=== PATIENT | male | born 1935 | race Caucasian/White ===

== ENCOUNTER 2020-09-09 17:38 | Inpatient (IN) | payer MEDICARE, BC ==
[~2020-09-09] VITALS: Ht 188 cm; Wt 113.4 kg
[~2020-09-09 17:38] MED LIST: ADOXA100 MG PO; ASCORBIC ACID500 MG PO; BUMINATE50 ML IV; COZAAR50 MG PO; DILTIAZEM 24HR240 M4 PO; FLOMAX0.4 MG PO; FLORAJEN3 CAPS460 MG PO; FLUTICASONE PRO16 GM NASAL; GAVILAX510 GM PO; HYDROCODON-ACE1 EAC7 PO; JANTOVEN1 MG PO; K-TAB10 MEQ PO; KLOR-CON 1010 MEQ PO; LASIX40 MG PO; LEVOXYL125 MCG PO; REMICADE INJ100 MG; TOPROL XL25 MG PO; VITAMIN D3 5,01 EACH PO; ZYLOPRIM300 MG PO
[2020-09-09 18:34] VITALS: BP 128/60; BMI 32.1
--- NOTE | 2020-09-09 18:49 | NUR ---
ADMIT TO REHAB FROM ACUTE FLOOR AT [facility] [place]. MAX ASST TO MOVE TO BED X3 STAFF. HE SAID HE WAS UNABLE TO HELP MOVE OR ROLL. HE CAME TO FLOOR RECIEVING A UNIT OF BLOOD VIA RT JUGULAR IV. F/C NOTED. ORNELAS CARE AND ANTHONY CARE DONE WHILE PT IN BED. URINE IS CLOUDY. UA COLLECTED. KEISHA DRAIN NOTED TO ABD. SEROUS FLUID NOTED TO KEISHA DRAIN. LOW ABD INCISION NOTED WITH RUDOLPH AND BRUISING AROUND RUDOLPH. HIS STOMACH PROTRUDES OUT BY RUDOLPH INSTEAD OF STOMACH FLAT. SPENCER HOSE REMOVED. TOES ARE ROUND AND EDEMATOUS. HE HAS EDEMA TO SCROTUM. PENIS IS INVERTED. SKIN BREAKDOWN NOTED TO BUTTOCKS. 1.5 X 3.0 CM PRESSURE ULCER STAGE 2 NOTED. HE IS ON 4LNC HIGH LARISA OXYGEN. STATES HE WEARS 2LNC AT HOME. HE IS ALERT AND ORIENTED X4. WEARS GLASSES. HAD LARGE BM TODAY. CAME TO VISIT.
[2020-09-09 19:25] LABS: BILIRUBIN NEGATIVE (NEGATIVE); KETONE NEGATIVE (NEGATIVE); NITRITE NEGATIVE (NEGATIVE); UROBILINOGEN NORMAL mg/dL (< 2)
[2020-09-09 19:26] LABS: BACTERIA FEW HPF (NONE SEEN)
--- NOTE | 2020-09-09 20:00 | NUR ---
PATIENT ASSESSMENT & VITAL SIGNS DONE. NO C/O PAIN OR DISTRESS. IN ROOM. PATIENT GAVE PERMISSION TOO SIGN PAPERS. PAPERS SIGNED. BED LOW. CALL LIGHT & BEDSIDE TABLE WITHIN REACH. WILL CONTINUE TO MONITOR.
[2020-09-09 20:03] VITALS: BP 128/68
--- NOTE | 2020-09-10 01:00 | NUR ---
PATIENT USED CALL LIGHT FOR ASSIST. PATIENT LIGHT TURNED ON. KEISHA DRAIN EMPTIED 85 CC. BED LOW. ALARM ON. CALL LIGHT WITHIN REACH. WILL CONTINUE TO MONITOR.
--- NOTE | 2020-09-10 01:49 | NUR ---
I have reviewed this patient and I concur with the Shift Assessment completed by the Licensed Practical Nurse today this shift.
[2020-09-10 07:01] LABS: INR 1.39 (0.85-1.17); PROTIME 15.8 SECONDS (11.6-15.0)
[2020-09-10 07:10] VITALS: Ht 188 cm; Wt 113.4 kg
[2020-09-10 08:00] VITALS: BP 116/60
--- NOTE | 2020-09-10 09:38 | NUR ---
HE IS ALERT, TOOK HIS MEDICATIONS WITHOUT ANY PROBLEMS. REPOSITIONED, THE CALL LIGHT IS WITHIN REACH AND THE BED ALARM IS ON.
[2020-09-10 15:39] LABS: BASOPHILS 0.2 % (0-2); EOSINOPHILS 2.8 % (0-7); HEMATOCRIT 26.3 % (42.0-54.0); HEMOGLOBIN 8.3 g/dL (13.5-17.5); IMMATURE GRANULOCYTES 1.1 % (0-5); LYMPHOCYTE ABS# 0.76 10x3/uL (1.32-3.57); LYMPHOCYTES 9.2 % (15-50); MCH 32.7 pg (26.0-34.0); MCHC 31.6 g/dL (31.0-37.0); MCV 103.5 fL (80.0-100.0); MEAN PLATELET VOLUME 9.8 fL (7.4-10.4); MONOCYTES 10.3 % (2-11); NEUTROPHILS 76.4 % (40-80); PLATELET COUNT 234 10x3/uL (130-400); RBC 2.54 10x6/uL (4.20-6.10); WBC 8.3 10x3/uL (4.8-10.8)
[2020-09-10 15:46] LABS: CALC OSMOLALITY 267 mosm/kg (275-300); CALCIUM 8.4 mg/dL (8.5-10.1); CARBON DIOXIDE 32.8 mmol/L (21.0-32.0); CHLORIDE - SERUM 100 mmol/L (98-107); GLUCOSE 87 mg/dL (74-106); POTASSIUM - SERUM 3.5 mmol/L (3.5-5.1); SODIUM 134 mmol/L (136-145); UREA NITROGEN 15 mg/dL (7-18); eGFR NON AFRICAN AMERICAN 76 mL/min (90-120)
--- NOTE | 2020-09-10 16:03 | NUR ---
HE HAS BEEN UP IN THE WHEELCHAIR FOR A FEW HOURS. WHEN BACK TO BED HIS GOWN IS WET. THE KEISHA DRAIN SITE IS LEAKING, THE DRESSING IS SATURATED. I CHANGED THE DRESSING, PLACED NEW 4X4'S OVER THE SITE WITH TAPE. THE KEISHA OUTPUT HAS BEEN 90 CC, 70 CC. I CHANGED THE STAT LOCK, NEW ONE DATED AND APPLIED. HIS BUTTOCKS IS RED, NO SKIN BREAKDOWN, CREAM APPLIED. EDUCATED HIM ABOUT TURNING/REPOSITIONING EVERY 2 HOURS. HE SAYS HE DOES. THE CALL LIGHT IS WITHIN REACH AND THE BED ALARM IS ON.
[2020-09-10 19:59] VITALS: BP 130/60
--- NOTE | 2020-09-10 20:00 | NUR ---
PATIENT RECIEVED SITTING UP IN BED. ASSESSMENT & VITAL SIGNS DONE. IN ROOM. VITAL SIGNS THE LAST TWO DAYS WROTE DOWN & GIVEN TO PATIENT & . NO C/O PAIN OR DISTRESS AT THIS TIME. BED LOW. ALARM ON. CALL LIGHT WITHIN REACH. WILL CONTINUE TO MONITOR.
--- NOTE | 2020-09-10 23:41 | NUR ---
PATIENT ON ROUNDS HAD KEISHA DRAIN FULL. EMPTIED OF 40 CC OF DARK YELLOW COLOR FLUID. PATIENT HAD NO NEEDS AT THIS TIME. BED LOW. ALARM ON. CALL LIGHT & PHONE WITHIN REACH. WILL CONTINUE TO MONITOR.
--- NOTE | 2020-09-11 04:14 | NUR ---
PATIENT EYES CLOSED. RESPIRATIONS 20 & EVEN. ORNELAS PATENT WTH YELLOW COLOR URINE. KEISHA DRAIN PATENT WITH YELLOW COLOR OUTPUT. BED LOW. BEDSIDE TABLE & CALL WITHIN REACH. WILL CONTINUE TO MONITOR.
[2020-09-11 07:02] LABS: INR 1.41 (0.85-1.17)
--- NOTE | 2020-09-11 19:35 | NUR ---
PATIENT RECEIVED WITH IN ROOM. CLEANED & WASHED PATIENT BODY & HAIR. REMOVED SCALY SKIN FROM FEET & APPLIED LOTION. PATIENT LINENS CHANGED. KEISHA DRAIN EMPTIED OF 40 CC OF YELLOW COLOR FLUID. NEW STAT LOCK APPLIED TO PATIENT LEG. PENIS HAD RED DRIED BLOOD AROUND IT. OLD STAT LOCK BROKEN. PATIENT LEGS, FEET, LEFT & RIGHT ARM PLACED ON PILLOWS. PATIENT HAS 4 PLUS EDEMA LOWER & UPPER EXTREMITIES, & SCROTUM AREA. PATIENT TURNED TO RIGHT SIDE OFF HIS UPPER COCCYX AREA. ASSSESSMENT & VITAL SIGNS DONE. BED LOW. CALL LIGHT WITHIN REACH. ALARM ON. WILL CONTINUE TO MONITOR.
[2020-09-11 19:36] VITALS: BP 117/65
--- NOTE | 2020-09-12 | NUR ---
HEARD PTS CALL LIGHT HIT THE FLOOR. WENT IN TO CHECK ON HIM AND HE HAD HIS OXYGEN OFF AND WAS PULLING AT HIS ORNELAS CATHETER. PLACED HIM BACK ON 3L NASAL CANNULA. HE WAS RUBBING INSIDE HIS NOSTRIL. HE SAID HIS NOSE FELT DRY. HUMIDIFICATION ADDED TO OXYGEN. O2 SAT IS 96% AFTER PLACING THE OXYGEN BACK ON. ASKED HIM IF HIS CATHETER WAS BOTHERING HIM AND HE SAID YES. THE STAT LOCK WAS REMOVED AND A NEW ONE WAS PLACED CLOSER TO PTS PENIS SO IT WOULD NOT PULL LIKE IT WAS. ORNELAS INTACT AND PT REPORTS THAT IT FEELS BETTER. HE SAID HE FELT HOT AND ANXIOUS. HE IS AFEBRILE, 97.8. REMOVED HIS 2 BLANKETS AND COVERED HIM WITH A SHEET. GAVE HIM AN ATIVAN TO HELP WITH THE ANXIETY. HE DENIES FURTHER NEEDS. BED IS LOW AND CALL LIGHT WITHIN REACH.
--- NOTE | 2020-09-12 02:50 | NUR ---
I have reviewed this patient and I concur with the Shift Assessment completed by the Licensed Practical Nurse today this shift.
[2020-09-12 05:14] LABS: INR 1.46 (0.85-1.17); PROTIME 16.5 SECONDS (11.6-15.0)
[2020-09-12 07:33] VITALS: BP 107/52
--- NOTE | 2020-09-12 08:12 | NUR ---
PT RESTING IN BED WITH EYES OPEN CALL LIGHT IN REACH WILL MONITER
--- NOTE | 2020-09-12 17:49 | NUR ---
PT RESTING IN BED WITH EYES OPEN CALL LIGHT IN REACH WILL MONITER
--- NOTE | 2020-09-12 18:02 | NUR ---
ORNELAS AND ANTHONY CARE PER PROTOCOL
[2020-09-12 19:36] VITALS: BP 115/61
--- NOTE | 2020-09-13 03:30 | NUR ---
HEARD PT TALKING SO WENT IN TO CHECK ON HIM AND HE WAS SITTING UP IN BED. HE HAD BLOOD ON HIS T SHIRT. THE MIDDLE OF HIS ABDOMINAL INCISON IS BLEEDING. PRESSURE APPLIED AND THE BLEEDING STOPPED. 4X4'S PLACED OVER THE SPOT THAT WAS BLEEDING AND COVERED WITH MEDIPORE TAPE. ASKED IF HE WAS IN PAIN AND HE STATED YES WHERE HIS INCISION IS. NORCO GIVEN ORDERED. WASHING HIS SHIRT IN THE WASHER AND PLACED A CLEAN GOWN ON HIM. MOLLY ALARM ON, BED IS LOW AND SIDE RAILS UP X 2. HE DENIES FURTHER NEEDS.
--- NOTE | 2020-09-13 05:04 | NUR ---
PT TRYING TO GET OUT OF BED. THE MIDDLE OF HIS INCISION IS BLEEDING AGAIN. HELD PRESSURE OVER THE INCISION SITE AND THE BLEEDING STOPPED. THE BULGING AROUND THE INCISION HAS GONE DOWN. PT IS CONFUSED. HE IS PULLING AT THE ORNELAS AND TOOK HIS GOWN OFF. REORIENTED HIM TO PLACE, TIME AND SITUATION. HE DID NOT WANT HIS GOWN BACK ON SO COVERED HIM WITH A BLANKET. MOLLY ALARM ON, BED IS LOW AND CALL LIGHT IS WITHIN REACH. WILL CONTINUE TO MONITOR. 1000ML EMPTIED FROM ORNELAS. 150ML OF SEROUS DRAINAGE EMPTIED FROM KEISHA DRAIN.
--- NOTE | 2020-09-13 07:47 | NUR ---
PT UP IN THERAPY GYM DOING PT NO [id number] WILL MONITER
[2020-09-13 08:52] LABS: INR 1.4 (0.85-1.17); PROTIME 15.9 SECONDS (11.6-15.0)
--- NOTE | 2020-09-13 13:11 | NUR ---
Nutrition Follow-up: Diet: Regular [facility] Soft + Ensure TID PO intake: ~59% average x last 9 meals. He states that his appeite is "great!" He had eaten most of his lunch tray at time of my visit. States that he is drinking strawberry Ensure with meals. Last BM: 09/10/20. Wt: 250# (09/10/20) Meds noted: coumadin, probiotics, micro-k, miralax, vit D, vit C, lasix Labs reviewed Skin: stage II PU to buttocks Recommend continue current diet and oral nutrition supplements. Will continue to honor food preferences within diet restrictions. Will continue to monitor PO intake and wt trend. RD will follow-up within 7 days.
--- NOTE | 2020-09-13 18:25 | NUR ---
KEISHA DRAIN LEAKING DRESSING CHANGED GOWN CHANGED PT REPOSITOINED IN BED SET UP WILL MONITER CALL LIGHT IN REACH
--- NOTE | 2020-09-13 18:42 | NUR ---
RECEIVED PT LYING IN BED AWAKE. ALERT AND ORIENTED X4. DENIES ANY NEEDS OR PAIN. NO DISTRESS NOTED. ORNELAS PATENT FREE FROM KINKS. LLQ KEISHA DRAIN COMPRESSED DRESSING INTACT. MIDLINE ABDOMINAL INCISION DRESSING INTACT. CONTINUES ON 3L VIA NC. CALL LIGHT AND WATER WITHIN REACH. FALL PRECAUTIONS IN PLACE. CPOC
[2020-09-13 19:30] VITALS: BP 128/73
--- NOTE | 2020-09-13 19:30 | NUR ---
PT REQUESTED BEDPAN, MAX ASSIST TO PLACE PT ON BEDPAN. NO OTHER NEEDS VOICED. AT BEDSIDE
--- NOTE | 2020-09-13 19:35 | NUR ---
REMOVED BEDPAN PT WAS UNABLE TO HAVE BM. PT REQUESTED SUPPLIES FOR BEDBATH. PT APRIL STATES SHE WOULD LIKE TO BATH HIM, THIS NURSE OFFERED TO PROVIDE BEDBATH. STATES "SHE DID NOT NEED HELP WITH BEDBATH AND DOING THIS FOR HER GIVES HER PURPOSE" THIS NURSE PERFORMED COMPLETE LINEN CHANGE, ORNELAS CATH CARE, AND APPLIED BUTTPASTE TO PT BUTTOCKS. NO OTHER NEEDS VOICED. INFORMED PT TO CALL IF IN NEED OF ASSISTANCE. VERBALIZED UNDERSTANDING. MOLLY ALARM ON. CPOC
--- NOTE | 2020-09-13 23:18 | NUR ---
PT LYING IN BED SUPINE EYES CLOSED RESTING. HEELS FLOATED. HOB ELEVATED. CONTINUES ON 3L VIA HF NC. NO DISTRESS NOTED. CALL LIGHT WITHIN REACH. MOLLY ALARM ON. CPOC
--- NOTE | 2020-09-14 04:47 | NUR ---
PT LYING IN BED EYES CLOSED RESTING. NO DISTRESS NOTED. CONTINUES ON 3L HF NC. REPOSITIONED TO RIGHT SIDE USING PILLOWS FOR SUPPORT. KEISHA DRAIN 70ML SEROUS FLUID DRAINED. KEISHA DRAIN COMPRESSED. 400ML CONCENTRATED URINE EMPTIED FROM ORNELAS. CALL LIGHT WITHIN REACH. FALL PRECAUTIONS IN PLACE. CPOC
--- NOTE | 2020-09-14 07:32 | NUR ---
PATIENT OUT OF BED AND ALREADY WORKING WITH THE THERAPISTS THIS AM. PATIENT DENIES PAIN OR ANY NEEDS AT THIS TIME. VITALS ARE STABLE
[2020-09-14 08:05] VITALS: BP 112/74
[2020-09-14 12:03] LABS: BASOPHILS 0.2 % (0-2); EOSINOPHILS 2.2 % (0-7); HEMATOCRIT 27.2 % (42.0-54.0); HEMOGLOBIN 8.7 g/dL (13.5-17.5); IMMATURE GRANULOCYTES 1.5 % (0-5); LYMPHOCYTE ABS# 0.76 10x3/uL (1.32-3.57); LYMPHOCYTES 9.3 % (15-50); MEAN PLATELET VOLUME 9.4 fL (7.4-10.4); MONOCYTES 9.4 % (2-11); NEUTROPHIL ABS# 6.34 10x3/uL (1.78-5.38); NEUTROPHILS 77.4 % (40-80); PLATELET COUNT 258 10x3/uL (130-400); RBC 2.64 10x6/uL (4.20-6.10); RDW 16.4 % (11.5-14.5); WBC 8.2 10x3/uL (4.8-10.8)
[2020-09-14 12:12] LABS: ANION GAP 3.2 mmol/L (8-16); CARBON DIOXIDE 34.7 mmol/L (21.0-32.0); CREATININE - SERUM 1.2 mg/dL (0.6-1.3); POTASSIUM - SERUM 3.9 mmol/L (3.5-5.1)
[2020-09-14 12:23] LABS: INR 1.36 (0.85-1.17); PROTIME 15.6 SECONDS (11.6-15.0)
--- NOTE | 2020-09-14 13:59 | NUR ---
CARE TEAM MEETING: PATIENT ADMITTED TO REHAB FROM ACUTE FLOOR.HIS PCP IS DR. TIDWELL AND IS A CLIENT OF [employer] AND WOULD LIKE TO RESUME WITH THEIR CARE AT DISCHARGE.DME AT HOME IS CANE, O2 AND A WALKER. PATIENT WILL BE RA AT NEXT MEETING. WILL CONTINUE TO FOLLOW WITH PATIENT.
--- NOTE | 2020-09-14 19:12 | NUR ---
RECIEVED PT LYING IN BED WATCHING TV. PULLED PT UP IN BED WITH ASSISTANCE FROM RN. CL IN REACH. DENIES NEEDS AT THIS TIME. PT ON O2 AT 4L HIGH FLOW VIA NC. ORNELAS INTACT URINEL WNL. A/O X3 CONFUSED AT NIGHT. BED ALARM ON. KEISHA DRAIN INTACT. R IJ DRESSING INTACT. CPOC
[2020-09-14 20:19] VITALS: BP 101/60
--- NOTE | 2020-09-15 03:12 | NUR ---
I have reviewed this patient and I concur with the Shift Assessment completed by the Licensed Practical Nurse today this shift.
[2020-09-15 06:57] LABS: INR 1.49 (0.85-1.17); PROTIME 16.7 SECONDS (11.6-15.0)
--- NOTE | 2020-09-15 19:15 | NUR ---
RECIEVED PT SITTING UP IN BED PT FOOD CHECKER LIGHT TO BE PULLED UP IN BED RECIEVED ASSISTANCE FROM RN. PT PLACED ON LEFT SIDE DUE TO SORE BUTTOCKS. R IJ INTACT. KEISHA DRAIN INTACT. DRESSING TO ABD C/D/I. ORNELAS INTACT. URINE WNL. RESP EVEN AND ON 3L OF HIGH FLOW O2. BOWEL ACTIVE X4. CL IN REACH. DENIES FURTHER NEEDS AT THIS TIME. A/O X4. CPOC
[2020-09-15 21:08] VITALS: BP 108/61
--- NOTE | 2020-09-16 01:07 | NUR ---
EMPTIED 120CC OUT OF KEISHA DRAIN
[2020-09-16 07:16] LABS: INR 1.41 (0.85-1.17)
[2020-09-16 08:00] VITALS: BP 95/49
--- NOTE | 2020-09-16 09:47 | NUR ---
HE IS IN BED SLEEPING, I WOKE HIM UP TO TAKE HIS MEDICATIONS. HE IS WEARING 2 HIGH FLOW OXYGEN. HIS LEGS ARE SWOLLEN BILATERALLY. HE HAS A STAGE 2 TO HIS RIGHT BUTTOCK, APPLYING CREAM TO THAT AREA. TURNED HIM TO THE RIGHT SIDE. THE CALL LIGHT IS WITHIN REACH AND THE BED ALARM IS ON.
[2020-09-16 15:24] VITALS: BP 114/62
[2020-09-16 20:45] VITALS: BP 122/68
--- NOTE | 2020-09-16 21:00 | NUR ---
RIGHT IJ DRESSING REMOVED AND THE SITE CLEANED PER POLICY. A NEW DRESSING APPLIED AND DATED. PT TOLERATED WELL.
--- NOTE | 2020-09-17 00:15 | NUR ---
PT IS RESTING WITH EYES CLOSED. RESPIRATIONS EVEN AND UNLABORED. HUMIDIFICATION IS ALMOST EMPTY ON HIS OXYGEN SO REPLACED IT WITH A NEW ONE. HIS MOLLY ALARM IS ON, BED IS LOW AND CALL LIGHT WITHIN REACH. WILL CONTINUE TO MONITOR.
[2020-09-17 05:54] LABS: INR 1.61 (0.85-1.17); PROTIME 17.8 SECONDS (11.6-15.0)
--- NOTE | 2020-09-17 07:32 | NUR ---
PT RESTING IN BED WITH EYES OPEN CALL LIGHT IN REACH WILL MONITER
[2020-09-17 08:37] VITALS: BP 120/63
--- NOTE | 2020-09-17 14:12 | NUR ---
ORNELAS CATH DONE
--- NOTE | 2020-09-17 18:27 | NUR ---
PT RESTING IN BED WITH EYES OPEN CALL LIGHT IN REACH NO PROBLEMS WILL MONITER
[2020-09-17 20:00] VITALS: BP 105/56
--- NOTE | 2020-09-18 03:30 | NUR ---
PT ASKING FOR ANXIETY MEDICATION. HE STATES HE FEELS LIKE HE IS GOING STIR CRAZY BEING STUCK IN THE ROOM. LET HIM KNOW HE CAN HAVE THE ATIVAN EVERY 8 HOURS NEEDED SO HE COULD HAVE IT AGAIN AROUND 0430. HE VERBALIZED UNDERSTANDING. HE REPORTS GENERALIZED PAIN 2/10. OFFERED NORCO BUT HE DECLINED AND WANTS TO WAIT A HOUR FOR HIS ATIVAN. GAVE HIM FRESH ICE WATER. HE DENIES FURTHER NEEDS. MOLLY ALARM ON, BED IS LOW AND CALL LIGHT WITHIN REACH.
[2020-09-18 05:53] VITALS: BP 106/55
--- NOTE | 2020-09-18 09:38 | NUR ---
RESTING QUIETLY IN BED, EYES CLOSED. NO S/S DISTRESS. OXYGEN IN PLACE VIA NC. HEAD OF BED ELEVATED 70 DEGREES. BLE ELEVATED IN BED. F/C DRAINING CLOUDY URINE. KEISHA DRAIN DRAINING PALE YELLOW LIQUID. 4+ EDEMA NOTED TO BLE AND LUE. BED IN LOWEST POSITION, SIDE RAILS UP X2. CALL LIGHT IN REACH
[2020-09-18 10:15] LABS: INR 1.54 (0.85-1.17); PROTIME 17.1 SECONDS (11.6-15.0)
--- NOTE | 2020-09-18 14:23 | NUR ---
TURNED FROM SIDE TO SIDE Q2 HRS. HE IS WEAK AND DOES ALMOST NOTHING FOR HIMSELF. KEISHA DRAIN HAS YELLOW LIQUID IN IT. F/C PATENT. CALL LIGHT IN REACH.
--- NOTE | 2020-09-18 15:00 | NUR ---
ORNELAS CATH CARE DONE.
[2020-09-18 18:28] VITALS: BP 129/64
--- NOTE | 2020-09-18 19:09 | NUR ---
AWAKE AND ALERT. RESTING IN BED WITH O2/3L ON PER HIGH FLOW. KEISHA DRAIN INTACT WITH CLEAR YELLOW DRAINAGE. ORNELAS PATENT. RIGHT IJ INTACT. NO ACUTE DISTRESS NOTED.
--- NOTE | 2020-09-19 00:04 | NUR ---
ATIVAN GIVEN FOR C/O ANXIETY AND RESTLESSNESS AND NORC 5 GIVEN PO FOR C/O GENERALZIED PAIN. SEE MAR. ORNELAS CATHETER LEAKING. FLUSHED WITH 30ML OF NORMAL SALINE AND TUBING UNKINKED FROM STAT LOCK. WILL MONITOR.
--- NOTE | 2020-09-19 00:06 | NUR ---
ORNELAS CATH CONTINUES TO LEAK. DISTENSION OF BLADDER NOTED OVER ABDOMINAL INCISION SITE. INCISION OOZING BLOOD AND FLUID. INCISION CLEANED AND ISLAND DRESSING APPLIED. RUDOLPH WERE INTACT. ORNELAS DC'D AND NEW ORNELAS 18F INSERTED. 700ML IMMEDIATE RETURN. DISTENSION OVER INCISION DECREASED SIGNIFICANTLY. PATIENT HAD COMPLAINED WELL THAT HIS ATIVAN DIDNT SEEM TO BE WORKING. WE DISCUSSED THE FLUID BACK UPED IN THE BLADDER MAY HAVE MADE HIM UNCOMFORTABLE. ENCOURAGED TO GIVEN MEDICATIONS MORE TIME NOW THAT BLADDER WAS EMPTIED. WILL CONTINUE TO MONITOR.
--- NOTE | 2020-09-19 02:09 | NUR ---
REQUEST HEAD OF BED ELEVATED. ORNELAS DRAINING WITHOUT DIFFICULTY AT THIS TIME. STATES HE FEELS BETTER. O2/3L ON PER NASAL CANNULA. HEAD OF BED ELEVATED.
[2020-09-19 05:20] LABS: BASOPHILS 0.9 % (0-2); EOSINOPHILS 4.3 % (0-7); IMMATURE GRANULOCYTES 0.6 % (0-5); LYMPHOCYTE ABS# 1.14 10x3/uL (1.32-3.57); LYMPHOCYTES 21.4 % (15-50); MCH 32.2 pg (26.0-34.0); MCHC 31.3 g/dL (31.0-37.0); MEAN PLATELET VOLUME 9.3 fL (7.4-10.4); MONOCYTES 12.2 % (2-11); NEUTROPHIL ABS# 3.23 10x3/uL (1.78-5.38); NEUTROPHILS 60.6 % (40-80); PLATELET COUNT 238 10x3/uL (130-400); RBC 2.33 10x6/uL (4.20-6.10); RDW 16.9 % (11.5-14.5); WBC 5.3 10x3/uL (4.8-10.8)
[2020-09-19 05:35] LABS: HEMOGLOBIN 7.5 g/dL (13.5-17.5)
[2020-09-19 05:50] LABS: INR 1.73 (0.85-1.17); PROTIME 18.8 SECONDS (11.6-15.0)
--- NOTE | 2020-09-19 05:51 | NUR ---
AWAKE AND ALERT. NOW. NO LABORED BREATHING. STATES HE FEELS BETTER AND WANTED TO KNOW WHEN HIS THERAPY WAS. I INFORMED HIM THAT HIS PHYSICAL THERAPIST [id number] BE WITH HIM SHORTLY. ORNELAS PATENT WITH SHIFT TOTAL OF 1250ML OUTPUT AND 50ML IN KEISHA DRAIN. SMALL AMOUNT OF DRAINAGE NOTED ON ABDOMINAL DRESSING. NO DK BLEEDING NOTED.
[2020-09-19 05:52] LABS: CALC OSMOLALITY 271 mosm/kg (275-300); CALCIUM 8.3 mg/dL (8.5-10.1); CARBON DIOXIDE 36.6 mmol/L (21.0-32.0); CHLORIDE - SERUM 102 mmol/L (98-107); GLUCOSE 79 mg/dL (74-106); POTASSIUM - SERUM 3.8 mmol/L (3.5-5.1); SODIUM 135 mmol/L (136-145); UREA NITROGEN 20 mg/dL (7-18); eGFR NON AFRICAN AMERICAN 76 mL/min (90-120)
[2020-09-19 06:18] VITALS: BP 121/55
--- NOTE | 2020-09-19 08:00 | NUR ---
HE HAS BEEN WORKING WITH THERAPY. HE IS SETTING UP IN THE WHEELCHAIR TO EAT BREAKFAST. HIS BP IS 95/46, 66, HELD HIS BP MEDS FOR THIS MORNING, WILL REPORT THIS TO THE DOCTOR. HE HAS A CLEAN DRESSING TO HIS ABD AND LEFT KEISHA SITE. HE HAS A ORNELAS. HE IS WANTING TO GO BACK TO BED, BUT WE ASKED HIM TO SET UP A WHILE LONGER. THE CALL LIGHT IS WITHIN REACH AND THE CHAIR ALARM IS ON.
[2020-09-19 08:05] VITALS: BP 95/46
--- NOTE | 2020-09-19 19:40 | NUR ---
AWAKE AND ALERT. RESTING IN BED WITH RESPIRATIONS UNLABORED. RIGHT IJ INTACT. ORNELAS PATENT. DRESSING INTACT TO ABDOMINAL INCISION.O2/3L HF. GENERALIZED EDEMA IN ARMS AND LEGS. SEE SHIFT ASSESSMENT FOR DETAILS.
[2020-09-19 20:00] VITALS: BP 127/66
[2020-09-19 20:10] VITALS: BP 127/66
--- NOTE | 2020-09-20 02:21 | NUR ---
RESTING IN BED WITH RESPIRAITONS UNLABORED. EYES CLOSED. NO DISTRESS NOTED.
[2020-09-20 07:30] VITALS: BP 130/66
--- NOTE | 2020-09-20 08:52 | NUR ---
HE IS SETTING UP IN THE WHEELCHAIR EATING BREAKFAST. HE HAS BILATERAL EDEMA TO HIS LEGS. HE HAS A ORNELAS, KEISHA TO THE LEFT LOWER ABD. DRESSING CLEAN, DRY, AND INTACT. HE IS WEARING 3 LITERS HIGH FLOW NC. THE CALL LIGHT IS WITHIN REACH.
--- NOTE | 2020-09-20 13:49 | NUR ---
OT GETTING HIM IN THE SHOWER. THE INCISION TO HIS ABD IS DRAINING. HIS LEFT BUTTOCKS IS BLEEDING, THE SKIN IS BROKEN. WILL DRESS ABD WOUND AND BOTTOCKS AFTER HIS SHOWER.
--- NOTE | 2020-09-20 18:50 | NUR ---
RECEIVED PT LYING IN BED EYES CLOSED RESTING. EASILY AROUSED WITH STIMULI. DENIES ANY NEEDS OR PAIN. RT IJ PATENT. DRESSING AND SWAB CAPS INTACT. ABDOMINAL DRESSING INTACT NO DRAINAGE NOTED. LEFT KEISHA DRAIN COMPRESSED AND DRESSING INTACT. CONTINUES ON 3L HF NC. BLE +3 EDEMA. ORNELAS PATENT FREE FROM KINKS. ORNELAS CATH CARE PROVIDED. NO DISTRESS NOTED. CALL LIGHT WITHIN REACH. FALL PRECAUTIONS IN PLACE. CPOC
[2020-09-20 20:47] VITALS: BP 106/53
--- NOTE | 2020-09-20 23:10 | NUR ---
REPOSITIONED PT IN BED TO LEFT SIDE USING PILLOWS FOR SUPPORT. PT IS RESTLESS, PT REQUESTS ATIVAN. NO OTHER NEEDS VOICED. DENIES ANY PAIN. CALL LIGHT WITHIN REACH. FALL PRECAUTIONS IN PLACE. CPOC
--- NOTE | 2020-09-21 02:06 | NUR ---
REPOSITIONED PT TO RIGHT SIDE USING PILLOWS. LEFT KEISHA DRAIN 30ML EMPTIED AND BULB COMPRESSED. NO OTHER NEEDS VOICED. CONTINUES ON 3L VIA HF NC. CALL LIGHT AND WATER WITHIN REACH. FALL PRECAUTIONS IN PLACE. CPOC
--- NOTE | 2020-09-21 04:06 | NUR ---
PT RESTLESS REPOSITIONED TO TOP OF BED AND PLACED ON LEFT SIDE USING PILLOWS. PT STATES HE IS UNABLE TO SLEEP REQUEST SOMETHING FOR SLEEP INFORMED PT HE DOES NOT HAVE ANYTHING AND CAN NOT HAVE ATIVAN UNTIL 0700. PT STATED THAT HE WAS TAKING RESTORIL 15MG HS AT HOME WHICH HELPED HIM SLEEP. INFORMED PT THIS NURSE WOULD LEAVE [facility] FOR DR. TIDWELL. NO OTHER NEEDS VOICED. DENIES PAIN. CALL LIGHT WITHIN REACH. CPOC
[2020-09-21 06:22] LABS: BASOPHILS 0.5 % (0-2); EOSINOPHILS 5.5 % (0-7); HEMATOCRIT 23.8 % (42.0-54.0); IMMATURE GRANULOCYTES 0.3 % (0-5); LYMPHOCYTE ABS# 0.95 10x3/uL (1.32-3.57); LYMPHOCYTES 16.2 % (15-50); MCH 32.5 pg (26.0-34.0); MCHC 31.5 g/dL (31.0-37.0); MEAN PLATELET VOLUME 9.2 fL (7.4-10.4); MONOCYTES 9.6 % (2-11); NEUTROPHIL ABS# 3.98 10x3/uL (1.78-5.38); NEUTROPHILS 67.9 % (40-80); PLATELET COUNT 227 10x3/uL (130-400); RBC 2.31 10x6/uL (4.20-6.10); RDW 17.9 % (11.5-14.5); WBC 5.9 10x3/uL (4.8-10.8)
[2020-09-21 06:23] LABS: ANION GAP 0.2 mmol/L (8-16); CALCIUM 8.6 mg/dL (8.5-10.1); CARBON DIOXIDE 37.7 mmol/L (21.0-32.0); CREATININE - SERUM 1.1 mg/dL (0.6-1.3); POTASSIUM - SERUM 3.9 mmol/L (3.5-5.1)
[2020-09-21 06:37] LABS: HEMOGLOBIN 7.5 g/dL (13.5-17.5)
[2020-09-21 07:28] LABS: INR 1.78 (0.85-1.17); PROTIME 19.2 SECONDS (11.6-15.0)
[2020-09-21 07:39] VITALS: BP 113/62
--- NOTE | 2020-09-21 10:48 | NUR ---
Nutrition Reassessment/Follow-up: Overall good PO intake. Ate 100% of meals yesterday. Diet: Regular, strawberry Ensure TID PO intake: 83% avg x 9 meals Wt: 250# (09/10) Last BM: 09/20 Labs reviewed Meds noted: Zofran, Coumadin, Florajen, Miralax, Lasix, Micro K, Albumin, vit C, vit D -Nutrition needs unchanged. -Need new wt if possible. -RD will follow up within 7 days.
[2020-09-21 13:18] VITALS: BP 130/62
[2020-09-21 13:33] VITALS: BP 132/65
[2020-09-21 16:16] VITALS: BP 135/68
[2020-09-21 16:31] VITALS: BP 135/68
--- NOTE | 2020-09-21 17:15 | NUR ---
RECEIVED PT LYING IN BED AWAKE. ALERT AND ORIENTED X4. RT IJ INFUSING PRBC 125ML/HR. NO DISTRESS NOTED. DENIES ANY NEEDS. CONTINUES ON 3L VIA HF NC. VS STABLE. BLE +4 EDEMA. LLQ KEISHA DRAIN COMPRESSED. ABDOMINAL DRESSING C/D/I. ORNELAS PATENT FREE FROM KINKS. ORNELAS CATH CARE PROVIDED. URINE OUTPUT CONCENTRATED. CALL LIGHT AND WATER WITHIN REACH. FALL PRECAUTIONS IN PLACE. CPOC
[2020-09-21 19:00] VITALS: BP 130/70
--- NOTE | 2020-09-21 21:10 | NUR ---
PT CALLED STATING HE IS FEELING "RESTLESS" UNABLE TO GET COMFORTABLE. REPOSITIONED PT TO HEAD OF BED POSITIONED SLIGHTLY TO RIGHT SIDE USING PILLOWS TO RELIEVE BUTTOCK PRESSURE. HOB ELEVATED. HEELS BRIDGED. PT REPORTED SOME RELIEF. REMOVED RIGHT IJ DRESSING, SUTURES INTACT, NO REDNESS OR DRAINAGE NOTED. CLEANSED SITE AND DRESSED SITE PER PROTOCOL. DATE TIME AND INITIALED DRESSING. PT C/O SOB, NOTICED PT PURSE LIP BREATHING O2 SAT 90% ON 3.5L HF. ELEVATED HOB TO 45 DEGREES ENCOURAGE TCDB, WELL IS WITHOUT ANY SUCCESS. TURNED O2 UP TO 4L HF O2 SAT 93%. NO DISTRESS NOTED. PT REPORTS BREATHING BETTER. CALL LIGHT WITHIN REACH. FALL PRECAUTIONS IN PLACE. CPOC
--- NOTE | 2020-09-22 00:55 | NUR ---
PT LYING IN BED EYES CLOSED RESTING. HOB ELEVATED. CONTINUES ON O2/4L HF NC. RR EVEN AND UNLABORED. CALL LIGHT WITHIN REACH. CPOC
--- NOTE | 2020-09-22 03:50 | NUR ---
PT LYING IN BED EYES CLOSED RESTING. REPOSITIONED TO LEFT SIDE. NO DISTRESS NOTED. CONTINUES ON 4L HF NC. CALL LIGHT WITHIN REACH. FALL PRECAUTIONS IN PLACE. CPOC
--- NOTE | 2020-09-22 06:31 | NUR ---
PT UP WALKING HALLS WITH MAGDI. NO DISTRESS NOTED. CONTINUES ON 4L HF NC. CPOC
[2020-09-22 07:46] VITALS: BP 127/81
[2020-09-22 10:44] LABS: ALBUMIN 2.2 g/dL (3.4-5.0); CALC OSMOLALITY 268 mosm/kg (275-300); CALCIUM 8.7 mg/dL (8.5-10.1); CARBON DIOXIDE 34.7 mmol/L (21.0-32.0); CHLORIDE - SERUM 98 mmol/L (98-107); POTASSIUM - SERUM 3.7 mmol/L (3.5-5.1); SODIUM 132 mmol/L (136-145); UREA NITROGEN 21 mg/dL (7-18); eGFR NON AFRICAN AMERICAN 76 mL/min (90-120)
[2020-09-22 10:45] LABS: GLUCOSE 122 mg/dL (74-106)
[2020-09-22 10:47] LABS: BASOPHILS 0.7 % (0-2); EOSINOPHILS 5.2 % (0-7); IMMATURE GRANULOCYTES 0.4 % (0-5); LYMPHOCYTE ABS# 0.93 10x3/uL (1.32-3.57); LYMPHOCYTES 12.8 % (15-50); MCH 32.9 pg (26.0-34.0); MCHC 32.1 g/dL (31.0-37.0); MCV 102.5 fL (80.0-100.0); MEAN PLATELET VOLUME 9.5 fL (7.4-10.4); MONOCYTES 9.2 % (2-11); NEUTROPHIL ABS# 5.21 10x3/uL (1.78-5.38); NEUTROPHILS 71.7 % (40-80); PLATELET COUNT 215 10x3/uL (130-400); RDW 17.3 % (11.5-14.5); WBC 7.3 10x3/uL (4.8-10.8)
[2020-09-22 10:48] LABS: HEMOGLOBIN 9.3 g/dL (13.5-17.5); RBC 2.83 10x6/uL (4.20-6.10)
--- NOTE | 2020-09-22 19:15 | NUR ---
RECIEVED PT LYING IN BED WATCHING TV. CL IN REACH. BED ALARM ON. DENIES NEEDS AT THIS TIME. BED ALARM ON. RIGHT IJ INTACT DRSG C/D/I. KEISHA DRAIN INTACT. ORNELAS INTACT URINE WNL. LUNGS DIMINISHED. O2 ON 4L HIGH FLOW NC. BOWEL ACTIVE X4. A/O X4. CPOC
[2020-09-22 20:57] VITALS: BP 125/88
--- NOTE | 2020-09-23 01:18 | NUR ---
I have reviewed this patient and I concur with the Shift Assessment completed by the Licensed Practical Nurse today this shift.
[2020-09-23 06:28] LABS: BASOPHILS 0.6 % (0-2); EOSINOPHILS 8.1 % (0-7); HEMATOCRIT 27.5 % (42.0-54.0); HEMOGLOBIN 8.8 g/dL (13.5-17.5); IMMATURE GRANULOCYTES 0.4 % (0-5); LYMPHOCYTE ABS# 0.69 10x3/uL (1.32-3.57); LYMPHOCYTES 14.3 % (15-50); MCH 32.5 pg (26.0-34.0); MCV 101.5 fL (80.0-100.0); MEAN PLATELET VOLUME 9.4 fL (7.4-10.4); MONOCYTES 15.1 % (2-11); NEUTROPHIL ABS# 2.97 10x3/uL (1.78-5.38); NEUTROPHILS 61.5 % (40-80); PLATELET COUNT 208 10x3/uL (130-400); RBC 2.71 10x6/uL (4.20-6.10); RDW 17.4 % (11.5-14.5)
[2020-09-23 06:29] LABS: WBC 4.8 10x3/uL (4.8-10.8)
[2020-09-23 06:46] LABS: INR 1.75 (0.85-1.17)
[2020-09-23 06:58] LABS: ANION GAP 3.3 mmol/L (8-16); CALCIUM 8.8 mg/dL (8.5-10.1); CARBON DIOXIDE 36.3 mmol/L (21.0-32.0); CREATININE - SERUM 1.1 mg/dL (0.6-1.3); POTASSIUM - SERUM 3.6 mmol/L (3.5-5.1)
[2020-09-23 07:26] VITALS: BP 130/67
--- NOTE | 2020-09-23 08:00 | NUR ---
PT RESTING IN BED WITH EYES OPEN CALL LIGHT IN REACH WILL MONITER
--- NOTE | 2020-09-23 17:53 | NUR ---
PT RESTING IN BED WITH EYES OPEN CALL LIGHT IN REACH NO PROBLEMS WILL MONITER
[2020-09-23 19:45] VITALS: BP 125/69
--- NOTE | 2020-09-24 03:34 | NUR ---
I have reviewed this patient and I concur with the Shift Assessment completed by the Licensed Practical Nurse today this shift.
--- NOTE | 2020-09-24 04:01 | NUR ---
PATIENT CALLED WANTING TO KNOW IF HE HAS SLEPT TONIGHT? PATIENT WITH NIGHT MED PASS WANTED HIS ATIVAN DISSOLVED IN WATER. PATIENT DID SO. PATIENT WANTED BUT SAID HIS PAIN MEDICATION UPSET HIS STOMACH. PATIENT INSTRUCTED BY THIS NURSE TO DRINK HIS ENSURE BEFORE TAKING HIS PAIN MEDICATION. PATIENT FINISHED HIS ENSURE & SWALLOWED HIS PAIN MEDICATION WITH WATER. PATIENT REMOVVED HIS DENTURES & PLACED THEM IN CUP TO BE CLEANED. 2 & AN HALF HOURS LATER PATIENT USED CALL LIGHT. THIS NURSE WENT IN ROOM. PATIENT WANTED TEETH BACK IN HIS MOUTH. 30 MINUTES LATER HE ASKED DENTURES TO BE PLACED BACK IN HIS DENTURE CUP. PATIENT SAID I THINK I SLEEP BETTER WITH THEM OUT. PATIENT WENT BACK TO SLEEP, RESPIRATIONS EVEN & UNLABORED AT THIS TIME. WAS SATISFIED & WAS GOING BACK TO SLEEP. WILL CONTINUE TO MONITOR PATIENT.
--- NOTE | 2020-09-24 06:46 | NUR ---
PT RESTING IN BED WITH EYES OPEN CALL LIGHT IN REACH WILL MONITER
[2020-09-24 08:16] VITALS: BP 124/72
--- NOTE | 2020-09-24 15:24 | NUR ---
I have reviewed this patient and I concur with the Shift Assessment completed by the Licensed Practical Nurse today this shift.
--- NOTE | 2020-09-24 18:10 | NUR ---
PT RESTING IN BED WITH EYES OPEN CALL LIGHT IN REACH WILL MONITER
[2020-09-24 20:14] VITALS: BP 117/67
--- NOTE | 2020-09-24 20:20 | NUR ---
PATIENT RECEIVED SITTING UP IN BED. ASSESMENT & VITAL SIGNS DONE. ORNELAS CATHETER PATENT WITH YELLOW COLOR URINE. NO C/O PAIN OR DISTRESS AT THIS TIME. KEISHA DRAIN PATENT WITH CLEAR DRAINAGE. BED LOW. CALLLIGHT WITHIN REACH. WILL CONTINUE TO MONITOR.
--- NOTE | 2020-09-24 23:38 | NUR ---
PATIENT AWAKE USING CALL LIGHT FOR ASSIST. PATIENT TOO WARM. WET WASHCLOTH ON FOREHEAD. PATIENT DRANK ENSURE & SWALLOWED HIS PAIN MEDICATION & ANTIBIOTIC. NO ADVERSE SIGNS OF ANTIBIOTICS AT THIS TIME. BED LOW. ORNELAS CATHETER & KEISHA DRAIN EMPTIED. DRESSING TO ABDOMEN C/D/I AT THIS TIME. CALL LIGHT WITHIN REACH. WILL CONTINUE TO MONITOR.
--- NOTE | 2020-09-25 00:37 | NUR ---
PATIENT GIVEN ZOFRAN FOR NAUSEA. WILL CONTINUE TO MONITOR.
--- NOTE | 2020-09-25 01:18 | NUR ---
PATIENT EYES CLOSED. RESPIRATION 18 & EVEN. ROOM COOLER. CALL IGHT & BEDSIDE TABLE WITHIN REACH. WILL CONTINUE TO MONITOR.
--- NOTE | 2020-09-25 03:53 | NUR ---
PATIENT CALLED WANTED TO KNOW IF WAS SLEEPING. IS GOING TO VISIT TODAY.
--- NOTE | 2020-09-25 04:00 | NUR ---
I have reviewed this patient and I concur with the Shift Assessment completed by the Licensed Practical Nurse today this shift.
[2020-09-25 06:47] VITALS: BP 107/57
[2020-09-25 10:22] LABS: INR 1.92 (0.85-1.17); PROTIME 20.4 SECONDS (11.6-15.0)
[2020-09-25 14:53] LABS: BASOPHILS 0.4 % (0-2); EOSINOPHILS 7.1 % (0-7); HEMATOCRIT 27.7 % (42.0-54.0); HEMOGLOBIN 8.9 g/dL (13.5-17.5); IMMATURE GRANULOCYTES 0.7 % (0-5); LYMPHOCYTE ABS# 0.78 10x3/uL (1.32-3.57); LYMPHOCYTES 14.3 % (15-50); MCH 33.1 pg (26.0-34.0); MCHC 32.1 g/dL (31.0-37.0); MONOCYTES 15.8 % (2-11); NEUTROPHIL ABS# 3.37 10x3/uL (1.78-5.38); NEUTROPHILS 61.7 % (40-80); PLATELET COUNT 199 10x3/uL (130-400); RBC 2.69 10x6/uL (4.20-6.10); RDW 17.3 % (11.5-14.5); WBC 5.5 10x3/uL (4.8-10.8)
--- NOTE | 2020-09-25 19:07 | NUR ---
AWAKE AND ALERT. RESTING IN BED. ANXIOUS. O2/3L ON PER NASAL CANNULA. KEISHA DRAIN INTACT WITH SEROUS DRAINAGE NOTED. ORNELAS PATENT. DRESSING INTACT TO ABDOMEN. CALL LIGHT IN REACH.
[2020-09-25 19:30] VITALS: BP 123/68
--- NOTE | 2020-09-26 | NUR ---
MEDICATED FOR C/O GENERALIZED PAIN. SEE MAR. CALL LIGHT IN REACH.
--- NOTE | 2020-09-26 05:17 | NUR ---
AWAKE AND RESTING IN BED. RIGHT IJ INTACT. ORNELAS PATENT. KEISHA DRAIN IN PLACE. NO ACUTE CHANGES IN CONDITION THIS SHIFT. O2/3L ON PER NASAL CANNULA.
[2020-09-26 06:39] VITALS: BP 127/66
[2020-09-26 08:06] LABS: BASOPHILS 0.2 % (0-2); HEMATOCRIT 29.2 % (42.0-54.0); HEMOGLOBIN 9.5 g/dL (13.5-17.5); IMMATURE GRANULOCYTES 0.6 % (0-5); LYMPHOCYTE ABS# 0.93 10x3/uL (1.32-3.57); LYMPHOCYTES 20.1 % (15-50); MCH 33.2 pg (26.0-34.0); MCHC 32.5 g/dL (31.0-37.0); MCV 102.1 fL (80.0-100.0); MEAN PLATELET VOLUME 9.6 fL (7.4-10.4); MONOCYTES 12.8 % (2-11); NEUTROPHIL ABS# 2.69 10x3/uL (1.78-5.38); NEUTROPHILS 58.3 % (40-80); PLATELET COUNT 212 10x3/uL (130-400); RBC 2.86 10x6/uL (4.20-6.10); RDW 17.2 % (11.5-14.5); WBC 4.6 10x3/uL (4.8-10.8)
[2020-09-26 08:13] LABS: ANION GAP 3.2 mmol/L (8-16); CARBON DIOXIDE 38.1 mmol/L (21.0-32.0); CREATININE - SERUM 1.2 mg/dL (0.6-1.3); POTASSIUM - SERUM 3.3 mmol/L (3.5-5.1)
--- NOTE | 2020-09-26 09:45 | NUR ---
SITTING UP IN WC. DENIES NEEDS HAS BEEN UP WORKING WITH THERAPY THIS MORNING. OXYGEN IN PLACE.
--- NOTE | 2020-09-26 17:50 | NUR ---
SITTING UP IN BED EATING SUPPER. HAS BEEN UP IN RECLINER AND WC SOME TODAY. STAFF ENCOURAGED PT TO STAY UP MUCH POSSIBLE TO HELP GAIN STRENGTH. HE REMAINS WEAK AND MAX ASST. EVIDENCE OF EDEMA STILL PRESENT IN BLE AND DEPENDENT EDEMA TO ABD AND FLANKS ESPECIALLY WHEN HE IS LAYING ON HIS SIDE. F/C DRAINING CLOUDY URINE. KEISHA DRAIN STILL DRAINING URINE COLORED DRAINAGE. PT HAS A LARGE DSG COVERING ABD INCISION. HE BUTTOCKS IS LOOKING BETTER AND APPEARS TO BE DRYING UP IN EXCORIATION AREAS. RT NECK DOUBLE LUMEN CVL IN PLACE AND PT IS STILL RECIEVING ALBUMIN.
--- NOTE | 2020-09-26 19:00 | NUR ---
RECEIVED PT LYING IN BED EYES CLOSED RESTING. EASILY AROUSED WITH STIMULI. ALERT AND ORIENTED X3. CONTINUES ON 3L HF NC. ABD UMBILICAL INCISION DRESSING C/D/I. LEFT KEISHA DRAIN COMPRESSED AND DRESSING INTACT. ORNELAS PATENT FREE FROM KINKS. ORNELAS CATH CARE PROVIDED. SLIGHT REDNESS ON TIP OF PENIS. BLE +4 EDEMA. DEPENDENT EDEMA NOTED TO RIGHT SIDE ABD. RT IJ DRESSING INTACT. SWAB CAPS INTACT. DENIES ANY NEEDS OR PAIN. NO DISTRESS NOTED. MOLLY ALARM ON. CPOC
[2020-09-26 20:17] VITALS: BP 138/69
--- NOTE | 2020-09-26 21:15 | NUR ---
RIGHT IJ DRESSING COMING LOOSE, REMOVED DRESSING. CLEANSED IJ STARTING AT CATH TIP WORKING UPWARD. NEW DRESSING APPLIED AND LUMENS SECURED. DATE AND INITIALED DRESSING. PT TOLERTATED WELL. NO DRAINAGE OR REDNESS AT INSERTION SITE.
--- NOTE | 2020-09-27 00:33 | NUR ---
PT LYING IN BED SUPINE EYES CLOSED RESTING. HOB ELEVATED. REPOSITIONED TO LEFT SIDE USING PILLOWS. NO DISTRESS NOTED. CALL LIGHT WITHIN REACH. CPOC
--- NOTE | 2020-09-27 04:03 | NUR ---
PT LYING IN BED SUPINE EYES CLOSED RESTING. RR EVEN AND UNLABORED. CONTINUES ON 3L VIA HF NC. NO DISTRESS NOTED. CALL LIGHT WITHIN REACH
[2020-09-27 08:00] VITALS: BP 132/61
[2020-09-27 08:53] LABS: INR 1.65 (0.85-1.17); PROTIME 18.1 SECONDS (11.6-15.0)
--- NOTE | 2020-09-27 15:50 | NUR ---
Nutrition Re-assessment Subjective: Chart reviewed. Patient s/p I&D of post surgical abdominal wound infection at bedside on 09/24/20. Diet: Regular Mech Soft + Chuckey Ensure TID PO intake: 50% x 3 meals yesterday. He states that he does not have much of an appetite today. States that he is "burnt out on chicken." States that he is drinking the Ensure Enlive some. Last BM: 09/26/20 Wt: 250# (09/10/20)- no new weight Meds noted: kdur, probiotics, lasix, coumadin, miralax, alb Labs noted: Na 135(L), K 3.3(L), BUN 22(H), GFR 61(L) Estimated nutrition needs: 2200-2600cal (25-30kcal/kg IBW), 105-130gms PRO (1.2-1.5gms/kg), 2200-2600mL fluid (or per MD) Nutrition diagnosis: Inadequate energy intake r/t decreased appetite AEB PO intake of only 50% avg x last 3 meals recorded and very little PO intake today. Recommendations: -Continue current diet, or per [employer] recommendations. -Will continue to honor food preferences within diet restrictions. -Continue oral nutrition supplement TID -Encouraged PO intake -Needs new weight as medically feasible -RD will follow-up 09/30/20
--- NOTE | 2020-09-27 16:18 | NUR ---
ABD WOUND CHANGED ORDERED. IT IS 3.75 X 1.75 CM WITH BEEFY RED WOUND BED AND MINIMAL AMT OF BLOODY DRAINAGE. NO ODOR OR S/S INFECTION. WTD WITH NS AND 4X4 COVERING. KEISHA DRAIN ALSO DC/D PER ORDER. NO DRAINAGE NOTED FROM SITE AFTER REMOVAL. NO S/S INFECTION. HE DENIES INCREASED PAIN TO ABD.
--- NOTE | 2020-09-27 19:10 | NUR ---
RECIEVED PT LYING IN BED WATCHING TV RESTING QUIETLY. CL IN REACH. DENIES NEEDS AT THIS TIME. BED IN LOW SIDE RAILS X2. A/O X4. MUCKLESHOOT. ASSISTED PT WITH MENU. RESP EVEN AND UNLABORED. 4L HIGH FLOW. DC'D KEISHA DRAIN TODAY DRSG C/D/I. ABD DRSG C/D/I. BOWEL ACTIVE X4. CPOC
[2020-09-27 19:34] VITALS: BP 121/63
--- NOTE | 2020-09-28 01:19 | NUR ---
I have reviewed this patient and I concur with the Shift Assessment completed by the Licensed Practical Nurse today this shift.
[2020-09-28 06:27] LABS: ANION GAP 1.8 mmol/L (8-16); CALCIUM 8.7 mg/dL (8.5-10.1); CARBON DIOXIDE 35.5 mmol/L (21.0-32.0); CREATININE - SERUM 1.2 mg/dL (0.6-1.3); POTASSIUM - SERUM 3.3 mmol/L (3.5-5.1)
[2020-09-28 06:43] LABS: BASOPHILS 0.2 % (0-2); HEMOGLOBIN 8.9 g/dL (13.5-17.5); IMMATURE GRANULOCYTES 0.4 % (0-5); LYMPHOCYTE ABS# 1.01 10x3/uL (1.32-3.57); LYMPHOCYTES 22.6 % (15-50); MCH 33.3 pg (26.0-34.0); MCV 101.1 fL (80.0-100.0); MEAN PLATELET VOLUME 9.5 fL (7.4-10.4); NEUTROPHILS 53.8 % (40-80); PLATELET COUNT 211 10x3/uL (130-400); RBC 2.67 10x6/uL (4.20-6.10); RDW 17.3 % (11.5-14.5); WBC 4.5 10x3/uL (4.8-10.8)
[2020-09-28 08:00] VITALS: BP 117/60
--- NOTE | 2020-09-28 15:21 | NUR ---
CARE TEAM MEETING: MET WITH PATIENT AND SPOUSE. THEIR QUESTIONS AND CONCERNS WERE ADDRESSED. A REFERRAL HAS BEEN FAXED TO [facility]. TENATIVE DC DATE IS 09/29/20. WILL CONTINUE TO FOLLOW WITH PATIENT.
--- NOTE | 2020-09-28 19:27 | NUR ---
AWAKE AND ALERT. RESTING IN BED TALKING WITH . RESPIRAITONS UNLABORED WITH O2/2L ON PER NASAL CANNULA. DRESSING TO ABDOMEN INTACT. RIGHT IJ INTACT WIT DRESSING DRY. ORNELAS PATENT. NO DISTRESS NOTED.
[2020-09-28 20:00] VITALS: BP 110/68
--- NOTE | 2020-09-29 05:00 | NUR ---
MEDICATED FOR C/O ANXIETY AND GENERALIZED PAIN. STATES HE DIDNT SLEEP MUCH. SOME ANXIETY ABOUT UPCOMING DISCHAGE.
[2020-09-29 05:44] LABS: INR 1.69 (0.85-1.17); PROTIME 18.5 SECONDS (11.6-15.0)
--- NOTE | 2020-09-29 05:44 | NUR ---
RESTING QUIETLY. NO DISTRESS NOTED.
[2020-09-29 07:42] VITALS: BP 118/66
[2020-09-29] MEDS ORDERED: K-DUR20 MEQ PO (08:23)
[2020-09-29] MEDS ORDERED: RESTORIL15 MG PO (08:23)
[2020-09-29] MEDS ORDERED: ATIVAN0.5 MG PO (08:23)
--- NOTE | 2020-09-29 08:25 | RHP ---
PATIENT: TRENT BUSTOS MEDICAL RECORD: [id number] ACCOUNT: [id number] LOCATION:[id number] : 39 ADMISSION DATE: 09/09/20 REHABILITATION HISTORY AND PHYSICAL EXAMINATION POST ADMISSION PHYSICIAN EXAMINATION POST ADMISSION PHYSICAL EXAMINATION AND HISTORY AND PHYSICAL ADMITTING DIAGNOSIS: Disuse myopathy. 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 The patient had a pretty severely distended abdomen. He had pain. He had recently been in the hospital apparently for a sigmoid volvulus. The patient was seen and evaluated, showed that he had a large bowel obstruction and severe constipation. He had bilateral pleural effusions with bilateral lower lobe atelectasis or pneumonia. He had a surgery consult done. He also went to the GI lab for a rigid sigmoidoscopy with placement of a transanal chest tube, to keep his volvulus detorsed so that his bowel could be prepped for surgery later that week. On 08/26/2020, went in for an open sigmoid colectomy, incidental appendectomy, a sharp excisional debridement of his abdominal wall mass. Postop, he had some confusion, hypotension, AFib, pleural effusions, persistent ileus. He received fresh frozen plasma and blood products status post this. Previously, he was independent with a cane or walker with ADLs and mobility. Currently, he has had prolonged immobility, weakness, especially in his lower extremities. He has got fatigue. He is mod to max assist for ADLs and mobility, sit to stand and bed to chair. He would like to gain his strength and go home with his mainly. COMORBIDITIES: Include weakness, oropharyngeal dysphagia, sigmoid volvulus, atrial fib, hypokalemia, kidney injury, postop ileus, severe protein malnutrition, atrial fib, chronic hypoxic respiratory failure, renal cell carcinoma, osteoarthritis, and anemia. PAST MEDICAL HISTORY: Significant for hyperlipidemia, COPD, O2 dependence, kidney cancer, Nelson's esophagitis, arthritis. PAST SURGICAL HISTORY: Includes gallbladder, hernia, and cataract surgery. ALLERGIES: No known drug allergies. CURRENT MEDICATIONS: He is on Coumadin, he takes 10 mg on Fridays, he is on 5 mg the rest of the week. He is on Flomax 0.4 mg daily, potassium 10 mEq daily. He is on polyethylene glycol 17 grams in 8 ounces of water daily, losartan 50 mg daily, Flonase nasal spray 2 sprays daily, vitamin D 5000 units daily, ascorbic acid 500 mg daily, allopurinol 100 mg daily, furosemide 80 mg b.i.d., Synthroid 125 daily, metoprolol 25 mg b.i.d., Cardizem 240 mg b.i.d., Hudson 1 tab q.3-4 hours p.r.n. HABITS: No alcohol or tobacco use. FAMILY HISTORY: Noncontributory. SOCIAL HISTORY: The patient hopes to return back home once again with his HISTORY AND PHYSICAL [id number] TRENT BUSTOS and get back to his prior level of functioning. REVIEW OF SYSTEMS: GENERAL: Does complain of weakness and fatigue. HEENT: Denies cold, cough, or congestion. CARDIOVASCULAR: Denies any chest pain. PHYSICAL EXAMINATION: VITAL SIGNS: Stable and afebrile. GENERAL: Well-developed gentleman, in no acute distress upon exam. HEENT: Normocephalic and atraumatic. Mucosa moist. NECK: Supple. No lymphadenopathy. LUNGS: Clear in upper ruiz. No wheezing or rales. HEART: Irregular rate and rhythm. ABDOMEN: Soft. Postop tenderness is appropriate. He does have good bowel sounds. EXTREMITIES: No clubbing, cyanosis. He does have peripheral edema even of his upper extremities. NEUROLOGIC: He has got diffuse weakness profoundly in upper and lower extremities. LABORATORY DATA: His INR today is 1.39. His UA did show positive leukocyte esterase and also 5-10 white blood cells. His CBC and his chemistries are pending at this time. 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 The patient has potential to make improvement. We instituted the following multidisciplinary therapies including, not limited to physical, occupational, respiratory, speech, nutritional services, prosthetics and orthotics. Given his complex medical condition and risks for more complications, rehabilitation services cannot be provided at a low level of care such as long term facility. PLAN: 1. Admit to [facility] for inpatient therapy to include the following disciplines; A. Physical therapy to improve gait, all transfer skills and bed mobility to independent level. B. Occupational therapy to improve activities of daily living. C. Case management to help with discharge planning and placement options. D. Nutrition to assist with nutritional needs. E. Rehabilitation nursing to assist in monitoring the patient's underlying medical conditions and to assist with any type of bowel or bladder management. 2. I am going to get him back on a standard dose of Coumadin for his atrial fibrillation. He is far enough from his surgery should be fine with this. 4. We will continue on other medications were appropriate. We will follow up his blood work and I will see again in the a.m. TRANSINT:[id number] Voice Confirmation ID: [id number] DOCUMENT ID: [id number] AMALIA notes whether there has been none or any medical/functional change since admission: - No change since preadmission screen. HISTORY AND PHYSICAL [id number] TRENT BUSTOS attests patient continues to be appropriate for IRF: - Continues to be appropriate. JOSE CRUZ TIDWELL MD at 0825 CC: [id number] DICTATION DATE: 09/10/20 0955 WOOD POLE TREATER: 09/10/20 1127 ADM IN [place] [id number] [place] [address]
--- NOTE | 2020-09-29 11:07 | NUR ---
PATIENT HAS BEEN ACCEPTED TO [facility] AND WILL DISCHARGE THERE TODAY VIA FACILITY VAN. KATI SIGNED, IMM SERVED AND EXPLAINED ONE GIVEN TO PATIENT AND ONE FILED IN CHART. NO COMPARE DATA REVIEWED PATIENT SPOUSE CHOSE [facility]FACILITY AT DISCHARGE WILL MAKE APPOINTMENTS WITH DR. TIDWELL AND DR. WONG FOR FOLLOW UP. DC INSTRUCTIONS FAXED TO PCP, SNF AND REVIEWED WITH PATIENT.
[2020-09-29 12:46] LABS: SARS-CoV-2 ANTIGEN NEGATIVE- SARS-COV-2 (NEGATIVE)
--- NOTE | 2020-09-29 15:03 | NUR ---
DISCHARGED IN STABLE CONDITION TO [facility].ON O2 AT 3L/NC.
== END 2020-09-29 14:30 | DRG 91 ==
LOC: D.REHAB 17:38
PROVIDERS: ADMIT Emergency Medicine; ATTEND Emergency Medicine
PROC: 0H97XZZ Drainage of Abdomen Skin, External Approach (ICD-10-PCS; principal; 2020-09-24)
DX: G72.89 Other specified myopathies (principal); K56.2 Volvulus; E43 Unspecified severe protein-calorie malnutrition; J96.10 Chronic respiratory failure, unspecified whether with hypoxia or hypercapnia; C64.9 Malignant neoplasm of unspecified kidney, except renal pelvis; T81.49XA Infection following a procedure, other surgical site, initial encounter; N17.9 Acute kidney failure, unspecified; J96.11 Chronic respiratory failure with hypoxia; R13.12 Dysphagia, oropharyngeal phase; R53.1 Weakness; I48.91 Unspecified atrial fibrillation; E87.6 Hypokalemia; M19.90 Unspecified osteoarthritis, unspecified site; D64.9 Anemia, unspecified; Z68.32 Body mass index [BMI] 32.0-32.9, adult; I12.9 Hypertensive chronic kidney disease with stage 1 through stage 4 chronic kidney disease, or unspecified chronic kidney disease; N18.9 Chronic kidney disease, unspecified; E78.5 Hyperlipidemia, unspecified; J44.9 Chronic obstructive pulmonary disease, unspecified; K22.70 Barrett's esophagus without dysplasia; N40.0 Benign prostatic hyperplasia without lower urinary tract symptoms